=== PATIENT | female | born 1945 | race Caucasian/White ===

== ENCOUNTER 2016-12-08 08:41 | Outpatient (CLI) | payer MEDICARE, OTHER ==
[2016-12-08 09:18] LABS: HGB - HEMOGLOBIN 14.2 g/dL (12.0-16.0); MEAN CORPUSCULAR HEMOGLOBIN 29.3 pg (27.0-31.0); MEAN CORPUSCULAR HGB CONC 33.8 g/dL (32.0-36.0); MEAN CORPUSCULAR VOLUME 86.6 fL (81.0-99.0); MEAN PLATELET VOLUME 7.8 fL (7.9-10.8); RED BLOOD COUNT 4.84 10^6/uL (4.20-5.40); RED CELL DISTRIBUTION WIDTH 14.1 % (12.0-15.0); WHITE BLOOD COUNT 5.3 x10^3/uL (4.8-10.8)
[2016-12-08 09:25] LABS: BILIRUBIN,URINE NEGATIVE (NEGATIVE)
[2016-12-08 09:57] LABS: ALBUMIN/GLOBULIN RATIO 1.2 (1.0-2.2); BILIRUBIN,TOTAL 1.1 mg/dL (0.2-1.0); BUN - BLOOD UREA NITROGEN 11 mg/dL (6-20); CARBON DIOXIDE - CO2 25 mmol/L (21-32); CHLORIDE 106 mmol/L (101-111); CHOL/HDL RATIO 3.9 (<4.4); CHOLESTEROL 192 mg/dL; CREATININE 0.9 mg/dL (0.4-1.0); GFR - MDRD 62 (>89); GLUCOSE 103 mg/dL (70-100); HDL CHOLESTEROL 49 mg/dL; LDL/HDL RATIO 2.4 (<4.4); POTASSIUM 3.9 mmol/L (3.5-5.0); SODIUM 137 mmol/L (135-145); TOTAL PROTEIN 7.2 g/dL (6.7-8.2); TRIGLYCERIDES 133 mg/dL; VLDL CHOLESTEROL 27 mg/dL
== END 2016-12-08 08:42 | disposition home or self-care (01) ==
LOC: LAB 08:41
PROVIDERS: ATTEND Internal Medicine
DX: R53.83 Other fatigue (principal); Z79.899 Other long term (current) drug therapy
CPT/HCPCS: 36415; 80053; 80061; 81003; 84443; 86803

== ENCOUNTER 2016-12-08 09:44 | Outpatient (CLI) | payer MEDICARE, OTHER ==
--- NOTE | 2016-12-09 18:17 | Mammography Report ---
DIGITAL SCREENING MAMMOGRAM: 12/08/2016 CLINICAL INDICATION: A 71-year-old for screening, history of benign biopsy. COMPARISON: 10/2015, 07/2014, 12/2013, 05/2013, 10/2012, 09/2010, 12/2008, 06/2008, 09/2006. TECHNIQUE: Routine CC and MLO projections were obtained of the breasts. FINDINGS: Scattered fibroglandular tissue is present within the breasts. There are no dominant mass es, suspicious microcalcifications, or secondary signs of malignancy. In comparison to the previous studies, there are no significant changes. ASSESSMENT: NO MAMMOGRAPHIC EVIDENCE OF MALIGNANCY. NO SIGNIFICANT INTERVAL CHANGES. RECOMMENDATION: Screening mammography is recommended annually. BIRADS category 1 - negative. STANDARD QUALIFYING STATEMENTS 1. This examination was reviewed with the aid of Computed-Aided Detection (CAD). 2. A negative or benign imaging report should not delay biopsy if clinically suspicious findings are present. Consider surgical consultation if warranted. More than 5% of cancers are not identified b y imaging. 3. Dense breasts may obscure an underlying neoplasm. JOB #: [id number] EXT JOB #:[id number]
== END 2016-12-08 09:45 | disposition home or self-care (01) ==
LOC: DI 09:44
PROVIDERS: ATTEND Internal Medicine
DX: Z12.31 Encounter for screening mammogram for malignant neoplasm of breast (principal)
CPT/HCPCS: 77067

== ENCOUNTER 2017-12-20 07:35 | Outpatient (CLI) | payer MEDICARE, OTHER ==
[2017-12-20 08:07] LABS: BASOPHILS % (AUTO) 0.6 %; EOSINOPHILS # (AUTO) 0.2 10^3/uL (0.0-0.7); EOSINOPHILS % (AUTO) 3.6 %; HGB - HEMOGLOBIN 13.9 g/dL (12.0-16.0); LYMPHOCYTES # (AUTO) 2.3 10^3/uL (1.5-3.5); LYMPHOCYTES % (AUTO) 35.9 %; MEAN CORPUSCULAR HEMOGLOBIN 29.7 pg (27.0-31.0); MEAN CORPUSCULAR VOLUME 87.5 fL (81.0-99.0); MEAN PLATELET VOLUME 8.2 fL (7.9-10.8); MONOCYTES # (AUTO) 0.8 10^3/uL (0.0-1.0); MONOCYTES % (AUTO) 12.6 %; NEUTROPHILS % (AUTO) 47.3 %; PLT - PLATELET COUNT 214 10^3/uL (130-450); RED BLOOD COUNT 4.67 10^6/uL (4.20-5.40); RED CELL DISTRIBUTION WIDTH 13.8 % (12.0-15.0); WHITE BLOOD COUNT 6.3 x10^3/uL (4.8-10.8)
[2017-12-20 08:20] LABS: CHOL/HDL RATIO 4.3 (<4.4); CHOLESTEROL 196 mg/dL; HDL CHOLESTEROL 46 mg/dL; LDL CHOLESTEROL,CALCULATED 124 mg/dL; LDL/HDL RATIO 2.7 (<4.4); VLDL CHOLESTEROL 26 mg/dL
== END 2017-12-20 07:36 | disposition home or self-care (01) ==
LOC: LAB 07:35
PROVIDERS: ATTEND Internal Medicine
DX: Z79.899 Other long term (current) drug therapy (principal); E74.9 Disorder of carbohydrate metabolism, unspecified; M12.9 Arthropathy, unspecified; R53.83 Other fatigue
CPT/HCPCS: 36415; 80061; 83721; 84443; 85025

== ENCOUNTER 2017-12-29 12:52 | Outpatient (CLI) | payer MEDICARE, OTHER ==
--- NOTE | 2017-12-29 15:51 | XRAY Report ---
Reason: UNSPECIFIED INJURY OF NOSE Procedure Date: 12/29/2017 Accession Number: [id number] / [id number] Procedure: XR - Nasal Bones CPT Code: FULL RESULT: EXAM: NASAL BONES RADIOGRAPHY EXAM DATE: 12/29/2017 02:21 PM. CLINICAL HISTORY: Trauma, pain. COMPARISONS: None. TECHNIQUE: 3 views. FINDINGS: Bones: Normal. No fractures or bone lesions. Sinuses: Normal. No opacities or fluid levels. Other: Unremarkable. IMPRESSION: Normal nasal bone radiography. RADIA
== END 2017-12-29 12:53 | disposition home or self-care (01) ==
LOC: DI 12:52
PROVIDERS: ATTEND Internal Medicine
DX: S09.92XS Unspecified injury of nose, sequela (principal)
CPT/HCPCS: 70160

== ENCOUNTER 2018-01-15 07:32 | Outpatient (CLI) | payer MEDICARE, OTHER ==
--- NOTE | 2018-01-15 14:52 | Ultrasound Report ---
Reason: ABDOMINAL PAIN Procedure Date: 01/15/2018 Accession Number: [id number] / [id number] Procedure: US - Abdomen Complete CPT Code: FULL RESULT: EXAM: ABDOMEN ULTRASOUND EXAM DATE: 01/15/2018 09:00 AM. CLINICAL HISTORY: Abdominal pain. COMPARISON: ABDOMEN 10/18/2012 9:39 AM. TECHNIQUE: Real-time scanning was performed with static images obtained. FINDINGS: Liver: Normal in size and echotexture. There is a simple appearing left lobe liver cyst which measures 1.7 x 1.6 x 2.1 cm and the liver overall measures at least 15.8 cm. Main portal vein flow: Hepatopetal. Gallbladder: Surgically absent. Biliary System: Common bile duct measures 6 mm. No intrahepatic or extrahepatic ductal dilatation. Pancreas: Visualized portion is unremarkable. Kidneys: Right: 10.8 cm longitudinally. Normal. No contour-deforming mass, stones, or hydronephrosis. Left: 10.7 cm longitudinally. Normal. No contour-deforming mass, stones, or hydronephrosis. Spleen: 8.8 cm. Normal in size and echotexture, note is made of splenule. Aorta and Inferior Vena Cava: Unremarkable. Other: None. IMPRESSION: Redemonstration of a simple hepatic cyst with no other abnormalities detected. RADIA
== END 2018-01-15 07:33 | disposition home or self-care (01) ==
LOC: DI 07:32
PROVIDERS: ATTEND Internal Medicine
DX: K76.89 Other specified diseases of liver (principal); R10.9 Unspecified abdominal pain
CPT/HCPCS: 76700

== ENCOUNTER 2018-01-15 07:33 | Outpatient (CLI) | payer MEDICARE, OTHER ==
--- NOTE | 2018-01-18 11:57 | Mammography Report ---
Reason: ABDOMINAL PAIN Procedure Date: 01/15/2018 Accession Number: [id number] / [id number] Procedure: MORRO - Screening Mammo Dig Bilat CPT Code: FULL RESULT: EXAM: Screening Mammo Dig Bilat DATE: 01/15/2018 9:55 AM CLINICAL HISTORY: 72-year-old female with right breast biopsy with benign pathology results in 2009 and personal history of early menses. TECHNIQUE: Bilateral CC and MLO views were obtained. COMPARISON: 12/08/2016, 10/30/2015, 08/09/2014, 01/02/2014. FINDINGS: The breasts demonstrate scattered fibroglandular densities bilaterally. No suspicious masses, clustered microcalcifications, or regions of architectural distortion are identified. IMPRESSION: Negative examination RECOMMENDATION: Routine annual screening unless otherwise clinically indicated. BIRADS CATEGORY 1: Negative STANDARD QUALIFYING STATEMENTS: 1. This examination was not reviewed with the aid of Computer-Aided Detection (CAD). 2. A negative or benign imaging report should not delay biopsy if clinically suspicious findings are present. Consider surgical consultation if warrented. More than 5% of cancers are not identified by imaging. 3. Dense breasts may obscure an underlying neoplasm. 4. This examination was reviewed without the aid of 3D breast imaging (tomosynthesis).
== END 2018-01-15 07:34 | disposition home or self-care (01) ==
LOC: DI 07:33
DX: Z12.31 Encounter for screening mammogram for malignant neoplasm of breast (principal)
CPT/HCPCS: 77067

== ENCOUNTER 2018-09-16 10:56 | Outpatient (CLI) | payer MEDICARE, OTHER ==
--- NOTE | 2018-09-16 13:12 | Mammography Report ---
Reason: LT BREAST LUMP Procedure Date: 09/16/2018 Accession Number: [id number] / [id number] Procedure: MORRO - Diagnostic Dig Bilat CPT Code: FULL RESULT: EXAM: Diagnostic Dig Bilat, Breast Unilateral Limited DATE: 09/16/2018 11:55 AM CLINICAL HISTORY: Pain and tenderness left breast 12:00 position BILATERAL MAMMOGRAPHY: TECHNIQUE: (B) - Bilateral CC and MLO views were obtained. COMPARISON: 01/15/2018, 12/08/2016, 10/30/2015, 08/09/2014 PARENCHYMAL PATTERN: (A) - The breasts demonstrate scattered fibroglandular densities bilaterally. FINDINGS: No significant interval change. There are no suspicious masses, calcifications, or areas of distortion. No mammographic abnormality in the area of pain 12:00 position left breast. LEFT BREAST ULTRASOUND TECHNIQUE: Targeted ultrasound was performed of the left breast in the area of clinical concern at 12:00 o'clock and 6 cm distance from the nipple. Color Doppler was employed as appropriate. FINDINGS: No cystic or solid mass, abnormal fluid collection, or lymph node is identified. IMPRESSION: Negative examination. BI-RADS category 1. RECOMMENDATION: (ANNUAL) - Recommend routine annual screening mammography. Clinical follow-up of the painful area left breast. BI-RADS CATEGORY: (1) - Negative. STANDARD QUALIFYING STATEMENTS: 1. This examination was not reviewed with the aid of Computer-Aided Detection (CAD). 2. A negative or benign imaging report should not preclude biopsy if clinically suspicious findings are present. 3. Dense breasts may obscure an underlying neoplasm. 4. This examination was reviewed with the aid of 3D breast imaging (tomosynthesis).
== END 2018-09-16 10:57 | disposition home or self-care (01) ==
LOC: DI 10:56
PROVIDERS: ATTEND Internal Medicine
DX: N63.21 Unspecified lump in the left breast, upper outer quadrant (principal); N64.4 Mastodynia
CPT/HCPCS: 76642; 77066; G0279; 77062

== ENCOUNTER 2019-10-18 15:47 | Emergency (ER) | payer MEDICARE, OTHER ==
[2019-10-18 16:09] LABS: BILIRUBIN,URINE NEGATIVE (NEGATIVE); CLARITY,URINE CLOUDY (CLEAR); GLUCOSE, URINE (UA) NEGATIVE (NEGATIVE); KETONES,URINE (UA) 15 mg/dL (NEGATIVE); LEUKOCYTE ESTERASE, URINE LARGE (NEGATIVE); NITRITE,URINE NEGATIVE (NEGATIVE); OCCULT BLOOD,URINE LARGE (NEGATIVE); PH,URINE 7.5 PH (5.0-7.5); PROTEIN,URINE 100 mg/dL (NEGATIVE); UROBILINOGEN,URINE 0.2 (NORMAL) E.U./dL (NORMAL)
--- NOTE | 2019-10-18 16:14 | ED Physician Documentation ---
PD HPI ABD PAIN - Stated complaint Stated Complaint: RLQ PX/FEVER - Chief complaint Chief Complaint: Abd Pain - History of Present Illness Timing - details: Abrupt onset Pain level max: 8 Quality: Sharp Associated symptoms: No: Fever, Nausea, Vomiting - Additional information Additional information: 74-year-old female presents to the emergency department with chief complaint of right lower quadrant abdominal pain and dysuria. Patient reports that yesterday evening she felt a fuzzy feeling in her stomach but then developed acute pain in the right part of her abdomen. This morning she notes that she is having pain when she pees. Denies dysuria. Past surgical history most significant for laparoscopic cholecystectomy. She does have a history of bladder prolapse. Patient denies fevers or vomiting. Review of Systems Constitutional: denies: Fever, Chills Cardiac: denies: Chest pain / pressure, Palpitations Respiratory: denies: Dyspnea GI: reports: Abdominal Pain. denies: Nausea, Vomiting : reports: Dysuria. denies: Frequency, Hesitancy, Hematuria, Discharge Skin: denies: Rash, Lesions Musculoskeletal: denies: Neck pain Neurologic: denies: Generalized weakness, Syncope, Headache PD PAST MEDICAL HISTORY - Present Medications Home Medications: Ambulatory Orders Medication Instructions Recorded Confirmed Cephalexin [Keflex] 500 mg PO BID #28 capsule 10/18/19 - Allergies Allergies/Adverse Reactions: Allergies Allergy/AdvReac Type Severity Reaction Status Date / Time ciprofloxacin [From Cipro] Allergy Cramps Verified 10/18/19 15:52 metronidazole [From Flagyl] Allergy Emesis Verified 10/18/19 15:52 Penicillins Allergy Emesis Verified 10/18/19 15:52 PD ED PE NORMAL - General General: Alert and oriented X 3, No acute distress, Well developed/nourished - HEENT HEENT: EOMI - Cardiac Cardiac: RRR, No murmur - Respiratory Respiratory: No respiratory distress - Abdomen Abdomen: Normal bowel sounds, Soft, Other (+ mcburney's; + rebound tenderness) - Back Back: No: No CVA TTP, No spinal TTP - Derm Derm: No: Normal color - Extremities Extremities: No: No deformity, No tenderness to palpate - Neuro Neuro: 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 No: Alert and oriented X 3 Eye Opening: Spontaneous Motor: Obeys Commands Verbal: Oriented GCS Score: 15 Results - Vitals Vitals: Vital Signs - 24 hr 10/18/19 15:52 Temperature 37.0 C Heart Rate 88 Respiratory 16 Rate Blood Pressure 125/68 O2 Saturation 94 Oxygen O2 Source Room air - Labs Labs: Laboratory Tests 10/18/19 10/18/19 10/18/19 15:57 16:11 16:11 WBC 14.4 H RBC 4.84 Hgb 14.7 Hct 42.5 MCV 87.8 MCH 30.4 MCHC 34.6 RDW 13.6 Plt Count 229 MPV 9.7 Neut # (Auto) 10.1 H Lymph # (Auto) 2.7 [place] # (Auto) 1.3 H Eos # (Auto) 0.1 Baso # (Auto) 0.1 Absolute Nucleated RBC 0.00 Nucleated RBC % 0.0 Sodium 134 L Potassium 3.6 Chloride 100 L Carbon Dioxide 23 Anion Gap 11.0 BUN 12 Creatinine 0.9 Estimated GFR (MDRD) 61 L Glucose 119 H Lactic Acid Calcium 9.0 Total Bilirubin 1.9 H AST 16 ALT 13 Alkaline Phosphatase 65 Total Protein 7.4 Albumin 4.4 Globulin 3.0 Albumin/Globulin Ratio 1.5 Lipase 43 Urine Color YELLOW Urine Clarity CLOUDY Urine pH 7.5 Ur Specific [place] 1.020 Urine Protein 100 H Urine Glucose (UA) NEGATIVE Urine Ketones 15 H Urine Occult Blood LARGE H Urine Nitrite NEGATIVE Urine Bilirubin NEGATIVE Urine Urobilinogen 0.2 (NORMAL) Ur Leukocyte Esterase LARGE H Urine RBC 6-10 H Urine WBC >25 H Urine WBC Clumps PRESENT Ur Squamous Epith Cells NONE SEEN Urine Bacteria None Seen Ur Microscopic Review INDICATED Urine Culture Comments INDICATED 10/18/19 16:11 WBC RBC Hgb Hct MCV MCH MCHC RDW Plt Count MPV Neut # (Auto) Lymph # (Auto) [place] # (Auto) Eos # (Auto) Baso # (Auto) Absolute Nucleated RBC Nucleated RBC % Sodium Potassium Chloride Carbon Dioxide Anion Gap BUN Creatinine Estimated GFR (MDRD) Glucose Lactic Acid 1.1 Calcium Total Bilirubin AST ALT Alkaline Phosphatase Total Protein Albumin Globulin Albumin/Globulin Ratio Lipase Urine Color Urine Clarity Urine pH Ur Specific [place] Urine Protein Urine Glucose (UA) Urine Ketones Urine Occult Blood Urine Nitrite Urine Bilirubin Urine Urobilinogen Ur Leukocyte Esterase Urine RBC Urine WBC Urine WBC Clumps Ur Squamous Epith Cells Urine Bacteria Ur Microscopic Review Urine Culture Comments - Rads (name of study) CT abd/pelvis Radiology: Final report received (Increase conspicuity of the urinary bladder wall this raises the possibility of cystitis. Nonspecific mildly prominent fluid-filled loops loops of the small bowel in the right lower quadrant. ) PD MEDICAL DECISION MAKING - ED course Complexity details: reviewed results, re-evaluated patient, d/w patient, d/w family ED course: 74-year-old female presented to the emergency department with acute onset right lower quadrant abdominal pain as well as dysuria. She has a mild leukocytosis on her blood count at 14K. Her urine is consistent with infection with many clumps as well as bacteria. However she was focally tender in the right lower quadrant. A CT scan was obtained to rule out the possibility of appendicitis. Mild enteritis is seen in the right lower quadrant. There are also findings consistent with acute cystitis. She does not have fever, CVA tenderness or vomiting and my suspicion is lower at this point for a sending urinary tract infection. However given the late hour the day I have given her 1 g of ceftriaxone. I will discharge her with a prescription of Keflex to be taken twice a day for the next 7 days.Emergent ED return precautions discussed for fevers worsening pain or failure symptoms to resolve. Departure - Departure Disposition: 01 Home, Self Care Clinical Impression: Cystitis, RLQ abdominal pain Condition: Stable Instructions: Abdominal Pain, ED UTI Cystitis Female Follow-Up: Elie Burrows MD [Primary Care Provider] - Prescriptions: Cephalexin [Keflex] 500 mg PO BID #28 capsule Comments: Majo it looks like there is an infection in your urine. We have given you first dose of antibiotic here in the emergency department. Please fill the prescription for the oral antibiotics tomorrow and begin taking as prescribed. CT scan did not show any findings consistent with acute appendicitis. You do have some findings in the lower small intestine that are consistent with ente ritis or simply inflammation.Please return to the emergency department if you are having worsening pain, any fevers, or your symptoms fail to improve please schedule follow-up appointment of this ED visit with your primary care doctor within the next week.
[2019-10-18] MEDS ORDERED: MORPHINE 2 MG/ML CARPUJECT IVP STA (16:16)
[2019-10-18 16:17] LABS: WBC CLUMPS,URINE PRESENT
[2019-10-18 16:18] LABS: BACTERIA,URINE None Seen /HPF (None Seen); SQUAMOUS EPITHELIAL CELL,UR NONE SEEN (<= Few)
[2019-10-18 16:21] LABS: BASOPHILS # (AUTO) 0.1 10^3/uL (0.0-0.1); BASOPHILS % (AUTO) 0.5 %; EOSINOPHILS # (AUTO) 0.1 10^3/uL (0.0-0.7); EOSINOPHILS % (AUTO) 0.9 %; HGB - HEMOGLOBIN 14.7 g/dL (12.0-16.0); LYMPHOCYTES # (AUTO) 2.7 10^3/uL (1.5-3.5); LYMPHOCYTES % (AUTO) 18.8 %; MEAN CORPUSCULAR HEMOGLOBIN 30.4 pg (27.0-31.0); MEAN CORPUSCULAR HGB CONC 34.6 g/dL (32.0-36.0); MEAN CORPUSCULAR VOLUME 87.8 fL (81.0-99.0); MEAN PLATELET VOLUME 9.7 fL (7.9-10.8); MONOCYTES # (AUTO) 1.3 10^3/uL (0.0-1.0); NEUTROPHILS # (AUTO) 10.1 10^3/uL (1.5-6.6); NEUTROPHILS % (AUTO) 70.2 %; PLT - PLATELET COUNT 229 10^3/uL (130-450); RED BLOOD COUNT 4.84 10^6/uL (4.20-5.40); RED CELL DISTRIBUTION WIDTH 13.6 % (12.0-15.0); WHITE BLOOD COUNT 14.4 x10^3/uL (4.8-10.8)
[2019-10-18] MEDS ORDERED: IOVERSOL 320 100 ML VIAL IVP ONE ×2 (16:26→17:01)
[2019-10-18 16:33] LABS: ALBUMIN 4.4 g/dL (3.2-5.5); ALBUMIN/GLOBULIN RATIO 1.5 (1.0-2.2); BILIRUBIN,TOTAL 1.9 mg/dL (0.2-1.0); CREATININE 0.9 mg/dL (0.4-1.0); TOTAL PROTEIN 7.4 g/dL (6.7-8.2)
--- NOTE | 2019-10-18 17:19 | CT Report ---
PROCEDURE: Abdomen/Pelvis W INDICATIONS: RLQ abdominal pain CONTRAST: IV CONTRAST: Optiray 320 ml: 100 PO CONTRAST: *NO PO CONTRAST TECHNIQUE: After the administration of oral and intravenous contrast, 5 mm thick sections acquired from the diap hragms to the symphysis. 5 mm thick coronal and sagittal reformats were acquired. For radiation dos e reduction, the following was used: automated exposure control, adjustment of mA and/or kV accordin g to patient size. COMPARISON: None. FINDINGS: Image quality: Excellent. ABDOMEN: Lung bases: Bibasilar atelectasis. No pleural effusion. Heart size is normal. Probable small hiatal h ernia. Solid organs: Liver and spleen are normal in size and enhancement. Well-circumscribed hepatic hypode nsities which have the appearance of benign cysts. Small splenule. Gallbladder is surgically absent. Left intrahepatic bile duct is mildly prominent measuring up to 8 mm, (3/19). Right intrahepatic angus e ducts appear normal. The CBD measures 1.1 cm and tapers distally.. Pancreas enhances normally. No adrenal nodules. Kidneys demonstrate normal size and enhancement, without hydronephrosis. At least t he proximal aspect of the right ureter is duplicated. More distal ureter is not well seen. Small kristopher ical hypodensities bilaterally which are too small to further characterize. Peritoneum and bowel: Bowel loops demonstrate normal wall thickness and caliber. No bowel obstructio n. Fluid-filled loops of distal ileum in the right lower quadrant and pelvis. Diverticulosis without diverticulitis. No free fluid or air. Nodes and vessels: No retroperitoneal or mesenteric adenopathy by size criteria. Aorta and inferior vena cava are normal in size. Miscellaneous: No ventral hernias. PELVIS: Genitourinary: Bladder is not significantly distended. There is increased conspicuity of the urinary bladder wall. Uterus is within normal limits. Miscellaneous: No inguinal hernias or adenopathy. Bones: No suspicious bony lesions. No vertebral body compression fractures. IMPRESSION: 1. Nonspecific mildly prominent fluid-filled loops of small bowel in the right lower quadrant and pel vis. This could be seen in enteritis. No bowel obstruction. No fluid collection. 2. Increased conspicuity of the urinary bladder wall. This raises the possibility of cystitis. Recomm end correlation with urinalysis. 3. Mildly prominent left intrahepatic bile ducts of undetermined chronicity and clinical significance . Consider correlation with liver function enzymes. 4. Post cholecystectomy. Reviewed by: Kevin Wayne MD on 10/18/2019 5:18 PM PDT Approved by: Kevin Wayne MD on 10/18/2019 5:18 PM PDT Station ID: [id number]
[2019-10-18] MEDS ORDERED: cefTRIAXone 1 GM in SODIUM CHLORIDE 0.9% MINIBAG 100 ML IV STA (17:26)
[2019-10-18 18:44] VITALS: BP 125/80
== END 2019-10-18 18:43 | disposition home or self-care (01) ==
LOC: ED 15:47
DX: N30.90 Cystitis, unspecified without hematuria (principal); K52.9 Noninfective gastroenteritis and colitis, unspecified
CPT/HCPCS: 36415; 74177; 80053; 81001; 83605; 83690; 85025; 87086; 87181; 96365; 96375; 99284; Q9967; 81003

== ENCOUNTER 2019-11-09 08:05 | Outpatient (CLI) | payer MEDICARE, OTHER ==
[2019-11-09 08:37] LABS: CHOL/HDL RATIO 3.5 (<4.4); CHOLESTEROL 209 mg/dL; HDL CHOLESTEROL 60 mg/dL; LDL CHOLESTEROL,CALCULATED 129 mg/dL; LDL/HDL RATIO 2.2 (<4.4); VLDL CHOLESTEROL 20 mg/dL
== END 2019-11-09 08:06 | disposition home or self-care (01) ==
LOC: LAB 08:05
PROVIDERS: ATTEND Internal Medicine
DX: R53.83 Other fatigue (principal); Z79.899 Other long term (current) drug therapy; E78.9 Disorder of lipoprotein metabolism, unspecified
CPT/HCPCS: 36415; 80061; 83721; 84443

== ENCOUNTER 2020-02-20 12:59 | Outpatient (CLI) | payer MEDICARE, OTHER ==
--- NOTE | 2020-02-22 16:32 | Mammography Report ---
BILATERAL DIGITAL SCREENING MAMMOGRAM 3D/2D: 02/20/2020 CLINICAL: Routine screening. Comparison is made to exams dated: 01/15/2018 mammogram, 12/08/2016 mammogram, 10/30/2015 mammogram, mammogram, and 09/16/2018 mammogram - [facility]. There are scattered fibro glandular elements in both breasts. No significant masses, calcifications, or other findings are seen in either breast. There has been no significant interval change. IMPRESSION: NEGATIVE There is no mammographic evidence of malignancy. A 1 year screening mammogram is recommended. This exam was interpreted at Station ID: [id number]. NOTE: For mammograms, a report in lay terms will be sent to the patient. Approximately 15% of breast malignancies will not be visualized mammographically. In the management of a palpable breast mass, a negative mammogram must not discourage biopsy of a clinically suspicious lesion. Electronically Signed By: Rafia mckeon/penrad:02/21/2020 16:28:22 ACR BI-RADS Category 1: Negative 3341F PARENCHYMAL PATTERN: (A) - The breast(s) demonstrate(s) scattered fibroglandular densities. BI-RADS CATEGORY: (1) - 1 RECOMMENDATION: (ANNUAL) - Recommend routine annual screening mammography. [id number] 1 year screening LATERALITY: (B)
== END 2020-02-20 13:00 | disposition home or self-care (01) ==
LOC: DI.N 12:59
DX: Z12.31 Encounter for screening mammogram for malignant neoplasm of breast (principal)
CPT/HCPCS: 77063; 77067

== ENCOUNTER 2020-02-23 07:53 | Outpatient (CLI) | payer MEDICARE, OTHER ==
[2020-02-23 11:05] LABS: BILIRUBIN,URINE NEGATIVE (NEGATIVE); CLARITY,URINE CLEAR (CLEAR); GLUCOSE, URINE (UA) NEGATIVE (NEGATIVE); KETONES,URINE (UA) NEGATIVE (NEGATIVE); LEUKOCYTE ESTERASE, URINE SMALL (NEGATIVE); NITRITE,URINE NEGATIVE (NEGATIVE); OCCULT BLOOD,URINE TRACE-INTA (NEGATIVE); PROTEIN,URINE NEGATIVE (NEGATIVE); UROBILINOGEN,URINE 0.2 (NORMAL) E.U./dL (NORMAL)
[2020-02-23 11:13] LABS: BACTERIA,URINE Few /HPF (None Seen); RBC,URINE 0-5 /HPF (0-5); SQUAMOUS EPITHELIAL CELL,UR FEW Squamous (<= Few)
== END 2020-02-23 07:54 | disposition home or self-care (01) ==
LOC: LAB 07:53
PROVIDERS: ATTEND Urology
DX: Z76.89 Persons encountering health services in other specified circumstances (principal)
CPT/HCPCS: 81001; 87086

== ENCOUNTER 2020-07-12 14:34 | Outpatient (CLI) | payer MEDICARE, OTHER ==
--- NOTE | 2020-07-12 15:54 | Ultrasound Report ---
PROCEDURE: Duplex Ext Veins Right INDICATIONS: RT CALF PAIN, R/O DVT TECHNIQUE: Real-time imaging, as well as color and pulse Doppler interrogation, were performed of the lower extr emity deep veins from the inguinal ligament to the popliteal fossa. COMPARISON: None. FINDINGS: The deep veins are normally compressible, and free of intraluminal thrombus. Color and pu lse Doppler demonstrate normal phasic intraluminal flow. There is normal augmentation response to di stal compression maneuver. IMPRESSION: No evidence of deep vein thrombosis involving the right lower extremity. Reviewed by: Vanessa Yanez MD, PhD on 07/12/2020 3:53 PM PDT Approved by: Vanessa Yanez MD, PhD on 07/12/2020 3:53 PM PDT Station ID: [id number]
== END 2020-07-12 14:35 | disposition home or self-care (01) ==
LOC: DI 14:34
PROVIDERS: ATTEND Family Medicine
DX: M79.661 Pain in right lower leg (principal)

== ENCOUNTER 2020-07-31 08:54 | Outpatient (CLI) | payer MEDICARE, OTHER ==
--- NOTE | 2020-07-31 09:40 | XRAY Report ---
PROCEDURE: Lumbar Spine 2 View INDICATIONS: LOW BACK SPRAIN TECHNIQUE: 3 views of the lumbar spine were acquired. COMPARISON: None. FINDINGS: Bones: 5 [id number]-aol-dhmerpf vertebrae are present. There is minimal retrolisthesis of and T12 on L1 an d grade 1 anterolisthesis of L4 on L5. Degenerative endplate changes are noted throughout visualized lower thoracic spine and lumbar spine. Finding is more prominent at L4-5 and L5-S1 levels. No vertebr al body compression fractures. No suspicious bony lesions. Soft tissues: Overlying bowel gas pattern is normal. No suspicious soft tissue calcifications. IMPRESSION: Likely degenerative spondylolisthesis at T12-L1 and L4-5 levels as above. Degenerative d isc disease throughout lower thoracic and lumbar spine more prominent at L4-5 and L5-S1 levels. No ac mary anne compression fracture. Reviewed by: Cordell Hoff MD on 07/31/2020 8:38 AM RHONA Approved by: Cordell Hoff MD on 07/31/2020 8:38 AM RHONA Station ID: [id number]
== END 2020-07-31 08:55 | disposition home or self-care (01) ==
LOC: DI 08:54
PROVIDERS: ATTEND Internal Medicine
DX: M51.36 Other intervertebral disc degeneration, lumbar region (principal); M51.37 Other intervertebral disc degeneration, lumbosacral region; M43.16 Spondylolisthesis, lumbar region; M43.15 Spondylolisthesis, thoracolumbar region

== ENCOUNTER 2020-08-05 08:01 | Outpatient (CLI) | payer MEDICARE, OTHER ==
[2020-08-05 08:22] LABS: BASOPHILS # (AUTO) 0.1 10^3/uL (0.0-0.1); BASOPHILS % (AUTO) 0.8 %; EOSINOPHILS # (AUTO) 0.4 10^3/uL (0.0-0.7); EOSINOPHILS % (AUTO) 5.8 %; HCT - HEMATOCRIT 43.3 % (37.0-47.0); HGB - HEMOGLOBIN 14.5 g/dL (12.0-16.0); LYMPHOCYTES # (AUTO) 2.6 10^3/uL (1.5-3.5); LYMPHOCYTES % (AUTO) 41.5 %; MEAN CORPUSCULAR HEMOGLOBIN 29.5 pg (27.0-31.0); MEAN CORPUSCULAR HGB CONC 33.5 g/dL (32.0-36.0); MEAN PLATELET VOLUME 9.4 fL (7.9-10.8); MONOCYTES # (AUTO) 0.7 10^3/uL (0.0-1.0); MONOCYTES % (AUTO) 11.8 %; NEUTROPHILS # (AUTO) 2.5 10^3/uL (1.5-6.6); NEUTROPHILS % (AUTO) 39.9 %; PLT - PLATELET COUNT 221 10^3/uL (130-450); RED BLOOD COUNT 4.92 10^6/uL (4.20-5.40); RED CELL DISTRIBUTION WIDTH 13.5 % (12.0-15.0); WHITE BLOOD COUNT 6.2 x10^3/uL (4.8-10.8)
[2020-08-05 08:36] LABS: ALBUMIN 4.2 g/dL (3.2-5.5); ALBUMIN/GLOBULIN RATIO 1.4 (1.0-2.2); ALKALINE PHOSPHATASE 63 IU/L (42-121); ALT ALANINE AMINOTRANSFERASE 13 IU/L (10-60); AST ASPARTATE AMINOTRANSFERASE 15 IU/L (10-42); BILIRUBIN,TOTAL 1.4 mg/dL (0.2-1.0); BUN - BLOOD UREA NITROGEN 13 mg/dL (6-20); CALCIUM 9.1 mg/dL (8.5-10.3); CARBON DIOXIDE - CO2 25 mmol/L (21-32); CHLORIDE 100 mmol/L (101-111); CHOL/HDL RATIO 3.6 (<4.4); CHOLESTEROL 218 mg/dL; CREATININE 0.8 mg/dL (0.4-1.0); GFR - MDRD 70 (>89); GLUCOSE 102 mg/dL (70-100); HDL CHOLESTEROL 61 mg/dL; LDL CHOLESTEROL,CALCULATED 127 mg/dL; LDL/HDL RATIO 2.1 (<4.4); POTASSIUM 3.7 mmol/L (3.5-5.0); SODIUM 134 mmol/L (135-145); TOTAL PROTEIN 7.1 g/dL (6.7-8.2); TRIGLYCERIDES 150 mg/dL; VLDL CHOLESTEROL 30 mg/dL
== END 2020-08-05 08:02 | disposition home or self-care (01) ==
LOC: LAB 08:01
PROVIDERS: ATTEND Internal Medicine
DX: S33.9XXA Sprain of unspecified parts of lumbar spine and pelvis, initial encounter (principal); E74.9 Disorder of carbohydrate metabolism, unspecified; E78.49 Other hyperlipidemia; R53.83 Other fatigue; Z79.899 Other long term (current) drug therapy; E78.79 Other disorders of bile acid and cholesterol metabolism
CPT/HCPCS: 36415; 80053; 80061; 83721; 84443; 85025; 85651

== ENCOUNTER 2020-08-16 08:53 | Outpatient (CLI) | payer MEDICARE, OTHER ==
--- NOTE | 2020-08-16 10:39 | XRAY Report ---
PROCEDURE: Shoulder 3 View LT INDICATIONS: ARTHRALGIA LEFT SHOULDER TECHNIQUE: 3 views of the shoulder were acquired. COMPARISON: None. FINDINGS: Bones: No fractures or dislocations. No suspicious bony lesions. Visualized ribs appear intact. M oderate to severe acromioclavicular joint space narrowing. Mild high riding appearance of the yadira l head. Soft tissues: No suspicious soft tissue calcifications. IMPRESSION: 1. Moderate to severe acromioclavicular joint space narrowing. 2. High riding humeral head which can be seen with rotator cuff pathology. Reviewed by: Ariana Bautista MD on 08/16/2020 9:37 AM RHONA Approved by: Ariana Bautista MD on 08/16/2020 9:37 AM RHONA Station ID: [id number]
== END 2020-08-16 08:54 | disposition home or self-care (01) ==
LOC: DI 08:53
PROVIDERS: ATTEND Family Medicine
DX: M25.512 Pain in left shoulder (principal)

== ENCOUNTER 2020-10-16 10:49 | Outpatient (CLI) | payer MEDICARE, OTHER ==
[2020-10-16 12:10] LABS: BILIRUBIN,URINE NEGATIVE (NEGATIVE); GLUCOSE, URINE (UA) NEGATIVE (NEGATIVE); KETONES,URINE (UA) NEGATIVE (NEGATIVE); LEUKOCYTE ESTERASE, URINE SMALL (NEGATIVE); NITRITE,URINE NEGATIVE (NEGATIVE); OCCULT BLOOD,URINE TRACE-LYSE (NEGATIVE); PROTEIN,URINE NEGATIVE (NEGATIVE); UROBILINOGEN,URINE 0.2 (NORMAL) E.U./dL (NORMAL)
[2020-10-16 12:11] LABS: CLARITY,URINE CLEAR (CLEAR)
[2020-10-16 12:17] LABS: BACTERIA,URINE Rare /HPF (None Seen); RBC,URINE 0-5 /HPF (0-5); SQUAMOUS EPITHELIAL CELL,UR RARE Squamous (<= Few); WBC,URINE 0-3 /HPF (0-5)
== END 2020-10-16 23:59 | disposition home or self-care (01) ==
LOC: LAB.R 10:49
PROVIDERS: ATTEND Urology
DX: Z76.89 Persons encountering health services in other specified circumstances (principal); R31.29 Other microscopic hematuria; R31.9 Hematuria, unspecified
CPT/HCPCS: 81001; 87086

== ENCOUNTER 2020-11-28 07:34 | Outpatient (CLI) | payer MEDICARE, OTHER ==
--- NOTE | 2020-11-28 12:26 | XRAY Report ---
PROCEDURE: Chest 2 View X-Ray INDICATIONS: COUGH TECHNIQUE: 2 view(s) of the chest. COMPARISON: None. FINDINGS: Surgical changes and devices: Cholecystectomy clips. Lungs and pleura: No pleural effusions or pneumothorax. Bibasilar scarring or recurrent atelectasis stable compared to prior CT scan of the abdomen were obtained 10/18/2019. Mediastinum: Mediastinal contours are normal. Heart size is normal. Bones and chest wall: No suspicious bony abnormalities. Soft tissues appear unremarkable. IMPRESSION: No acute cardiopulmonary disease process. Reviewed by: Vanessa Yanez MD, PhD on 11/28/2020 12:25 PM PDT Approved by: Vanessa Yanez MD, PhD on 11/28/2020 12:25 PM PDT Station ID: [id number]
== END 2020-11-28 07:35 | disposition home or self-care (01) ==
LOC: DI 07:34
PROVIDERS: ATTEND Internal Medicine
DX: R05 Cough (principal)

== ENCOUNTER 2021-02-20 08:40 | Outpatient (CLI) | payer MEDICARE, OTHER ==
--- NOTE | 2021-02-26 13:47 | Mammography Report ---
BILATERAL DIGITAL SCREENING MAMMOGRAM 3D/2D: 02/20/2021 CLINICAL: Routine screening. Comparison is made to exams dated: 02/20/2020 mammogram, 09/16/2018 ultrasound, 09/16/2018 mammogram, mammogram, 12/08/2016 mammogram, and 10/30/2015 mammogram - [facility]. The re are scattered fibroglandular elements in both breasts. No significant masses, calcifications, or other findings are seen in either breast. There has been no significant interval change. IMPRESSION: NEGATIVE There is no mammographic evidence of malignancy. A 1 year screening mammogram is recommended. This exam was interpreted at Station ID: [id number]. NOTE: For mammograms, a report in lay terms will be sent to the patient. Approximately 15% of breast malignancies will not be visualized mammographically. In the management of a palpable breast mass, a negative mammogram must not discourage biopsy of a clinically suspicious lesion. Electronically Signed By: Jeremy Velez M.D., jr/donavan:02/25/2021 16:13:53 ACR BI-RADS Category 1: Negative 3341F PARENCHYMAL PATTERN: (A) - The breast(s) demonstrate(s) scattered fibroglandular densities. BI-RADS CATEGORY: (1) - 1 RECOMMENDATION: (ANNUAL) - Recommend routine annual screening mammography. [id number] 1 year screening LATERALITY: (B)
== END 2021-02-20 08:41 | disposition home or self-care (01) ==
LOC: DI.N 08:40
DX: Z12.31 Encounter for screening mammogram for malignant neoplasm of breast (principal)

== ENCOUNTER 2023-03-23 13:57 | Outpatient (CLI) | payer MEDICARE, OTHER ==
--- NOTE | 2023-03-24 13:18 | Mammography Report ---
BILATERAL DIGITAL SCREENING MAMMOGRAM 3D/2D: 03/23/2023 CLINICAL: Routine screening. Comparison is made to exams dated: 03/04/2022 mammogram, 02/20/2021 mammogram, 02/20/2020 mammogram, mammogram, 09/16/2018 mammogram, and 12/08/2016 mammogram - [facility]. There are scattered areas of fibroglandular density in both breasts (category b / 25%-50% glandular t issue). There is a possible developing oval equal density focal asymmetry in the left breast at 9 o'clock ant erior depth. This is more prominent. No other significant masses, calcifications, or other findings are seen in either breast. IMPRESSION: INCOMPLETE: NEEDS ADDITIONAL IMAGING EVALUATION The possible developing oval equal density focal asymmetry in the left breast is indeterminate. Freddy tional views with possible ultrasound are recommended. Based on the Tyrer Cuzick model (a risk assessment model) the patients lifetime risk is 3.1% and her 10 year risk is 0.0%. According to the ACR, ACS, and NCCN guidelines, an annual breast MRI exam ronda g with mammogram is recommended if the patients lifetime risk is 20% or greater. This exam was interpreted at Station ID: [id number]. NOTE: For mammograms, a report in lay terms will be sent to the patient. Approximately 15% of breast malignancies will not be visualized mammographically. In the management of a palpable breast mass, a negative mammogram must not discourage biopsy of a clinically suspicious lesion. Electronically Signed By: Cristobal Huang M.D. aty/:03/23/2023 15:50:50 ACR BI-RADS Category 0: Incomplete 3340F PARENCHYMAL PATTERN: (A) - The breast(s) demonstrate(s) scattered fibroglandular densities. BI-RADS CATEGORY: (0) - 0 Mammo and [place] [id number] Immediate follow-up LATERALITY: (L)
== END 2023-03-23 13:58 | disposition home or self-care (01) ==
LOC: DI 13:57
DX: Z12.31 Encounter for screening mammogram for malignant neoplasm of breast (principal); R92.323 Mammographic fibroglandular density, bilateral breasts; R92.8 Other abnormal and inconclusive findings on diagnostic imaging of breast

== ENCOUNTER 2023-04-15 08:18 | Outpatient (CLI) | payer MEDICARE, OTHER ==
--- NOTE | 2023-04-16 08:27 | Ultrasound Report ---
LIMITED ULTRASOUND OF LEFT BREAST: 04/15/2023 CLINICAL: Patient returns today to evaluate a focal asymmetry in the left breast. Comparison is made to exams dated: 04/15/2023 mammogram, 03/23/2023 mammogram, 03/04/2022 mammogram, 02/20/2021 mammogram, and 02/20/2020 mammogram - [facility]. Real-time ultrasound of the left breast 9-10 o'clock region was performed. Glez scale images of the real-time examination were reviewed. No significant abnormalities were seen sonographically in the left breast. IMPRESSION: NEGATIVE There is no sonographic evidence of malignancy. There is no abnormality seen in the left breast to correspond with the mammography finding which is c onsistent with normal fibroglandular tissue. Return to annual mammogram screening schedule is recommended. This exam was interpreted at Station ID: [id number]. Electronically Signed By: Tristen reed/donavan:04/15/2023 16:45:36 Ultrasound BI-RADS: 1 Negative BI-RADS CATEGORY: (1) - 1 Mammogram [id number] return to screening LATERALITY: (B)
--- NOTE | 2023-04-16 08:27 | Mammography Report ---
UNILATERAL LEFT DIGITAL DIAGNOSTIC MAMMOGRAM 3D/2D WITH SPOT COMPRESSION: 04/15/2023 CLINICAL: Patient returns today to evaluate a focal asymmetry in the left breast. Comparison is made to exams dated: 03/23/2023 mammogram, 03/04/2022 mammogram, 02/20/2021 mammogram, a nd 02/20/2020 mammogram - [facility]. There are scattered areas of fibroglandular density in the left breast (category b / 25%-50% glandula r tissue). There is a possible developing oval focal asymmetry in the left breast at 9 o'clock anterior depth. This is less prominent. No other significant masses or calcifications are seen in the breast. IMPRESSION: INCOMPLETE: NEEDS ADDITIONAL IMAGING EVALUATION The possible developing oval focal asymmetry in the left breast resembles fibroglandular tissue and i s indeterminate. An ultrasound is recommended. Based on the Tyrer Cuzick model (a risk assessment model) the patients lifetime risk is 3.1% and her 10 year risk is 0.0%. According to the ACR, ACS, and NCCN guidelines, an annual breast MRI exam ronda g with mammogram is recommended if the patients lifetime risk is 20% or greater. This exam was interpreted at Station ID: [id number]. NOTE: For mammograms, a report in lay terms will be sent to the patient. Approximately 15% of breast malignancies will not be visualized mammographically. In the management of a palpable breast mass, a negative mammogram must not discourage biopsy of a clinically suspicious lesion. Electronically Signed By: Tristen reed/penrad:04/15/2023 16:44:53 ACR BI-RADS Category 0: Incomplete 3340F PARENCHYMAL PATTERN: (A) - The breast(s) demonstrate(s) scattered fibroglandular densities. BI-RADS CATEGORY: (0) - 0 Ultrasound [id number] Immediate follow-up LATERALITY: (L)
== END 2023-04-15 08:19 | disposition home or self-care (01) ==
LOC: DI 08:18
PROVIDERS: ATTEND Internal Medicine
DX: R92.8 Other abnormal and inconclusive findings on diagnostic imaging of breast (principal)

== ENCOUNTER 2023-05-29 08:03 | Outpatient (CLI) | payer MEDICARE, OTHER ==
[2023-05-29 08:27] LABS: BASOPHILS # (AUTO) 0.1 10^3/uL (0.0-0.1); EOSINOPHILS # (AUTO) 0.2 10^3/uL (0.0-0.7); EOSINOPHILS % (AUTO) 3.6 %; HCT - HEMATOCRIT 46.2 % (37.0-47.0); HGB - HEMOGLOBIN 14.9 g/dL (12.0-16.0); LYMPHOCYTES # (AUTO) 2.2 10^3/uL (1.5-3.5); LYMPHOCYTES % (AUTO) 36.2 %; MEAN CORPUSCULAR HEMOGLOBIN 28.2 pg (27.0-31.0); MEAN CORPUSCULAR HGB CONC 32.3 g/dL (32.0-36.0); MEAN CORPUSCULAR VOLUME 87.5 fL (81.0-99.0); MEAN PLATELET VOLUME 9.7 fL (7.9-10.8); MONOCYTES # (AUTO) 0.7 10^3/uL (0.0-1.0); MONOCYTES % (AUTO) 11.6 %; NEUTROPHILS # (AUTO) 2.9 10^3/uL (1.5-6.6); NEUTROPHILS % (AUTO) 47.3 %; PLT - PLATELET COUNT 230 10^3/uL (130-450); RED BLOOD COUNT 5.28 10^6/uL (4.20-5.40); RED CELL DISTRIBUTION WIDTH 13.6 % (12.0-15.0); WHITE BLOOD COUNT 6.1 x10^3/uL (4.8-10.8)
[2023-05-29 08:49] LABS: BILIRUBIN,URINE NEGATIVE (NEGATIVE); GLUCOSE, URINE (UA) NEGATIVE (NEGATIVE); KETONES,URINE (UA) NEGATIVE (NEGATIVE); LEUKOCYTE ESTERASE, URINE LARGE (NEGATIVE); NITRITE,URINE NEGATIVE (NEGATIVE); OCCULT BLOOD,URINE SMALL (NEGATIVE); PROTEIN,URINE NEGATIVE (NEGATIVE); UROBILINOGEN,URINE 0.2 (NORMAL) E.U./dL (NORMAL)
[2023-05-29 08:53] LABS: ALBUMIN/GLOBULIN RATIO 1.3 (1.0-2.2); ALKALINE PHOSPHATASE 58 IU/L (42-121); ALT ALANINE AMINOTRANSFERASE 8 IU/L (10-60); AST ASPARTATE AMINOTRANSFERASE 13 IU/L (10-42); BILIRUBIN,TOTAL 0.8 mg/dL (0.2-1.0); BUN - BLOOD UREA NITROGEN 14 mg/dL (6-20); CALCIUM 9.5 mg/dL (8.5-10.3); CARBON DIOXIDE - CO2 27 mmol/L (21-32); CHLORIDE 105 mmol/L (101-111); CHOL/HDL RATIO 3.6 (<4.4); CHOLESTEROL 194 mg/dL; CREATININE 0.9 mg/dL (0.6-1.3); CRP - C-REACTIVE PROTEIN < 0.5 mg/dL (<0.5); GFR - MDRD 61 (>89); GLUCOSE 102 mg/dL (74-104); HDL CHOLESTEROL 54 mg/dL; LDL CHOLESTEROL,CALCULATED 106 mg/dL; MAGNESIUM 1.9 mg/dL (1.7-2.3); POTASSIUM 3.7 mmol/L (3.5-4.5); SODIUM 137 mmol/L (135-145); TRIGLYCERIDES 170 mg/dL (48-352); VLDL CHOLESTEROL 34 mg/dL
[2023-05-29 08:54] LABS: CLARITY,URINE CLEAR (CLEAR)
[2023-05-29 08:55] LABS: BACTERIA,URINE Few /HPF (None Seen); RBC,URINE 0-5 /HPF (0-5); SQUAMOUS EPITHELIAL CELL,UR NONE SEEN (<= Few); WBC,URINE 0-3 /HPF (0-5)
[2023-05-29 08:55] LABS: THYROID STIMULATING HORMONE 3.63 uIU/mL (0.34-5.60)
== END 2023-05-29 08:04 | disposition home or self-care (01) ==
LOC: LAB 08:03
PROVIDERS: ATTEND Internal Medicine
DX: K22.9 Disease of esophagus, unspecified (principal); Z79.899 Other long term (current) drug therapy; E78.5 Hyperlipidemia, unspecified; E74.9 Disorder of carbohydrate metabolism, unspecified; R07.9 Chest pain, unspecified; R53.83 Other fatigue; M12.9 Arthropathy, unspecified; R19.7 Diarrhea, unspecified
CPT/HCPCS: 36415; 80053; 80061; 81001; 81599; 82784; 83721; 83735; 84443; 85025; 85651; 86140; 86231; 86364; 87086

== ENCOUNTER 2023-06-11 13:21 | Emergency (ER) | payer MEDICARE, OTHER ==
--- NOTE | 2023-06-11 15:36 | CT Report ---
PROCEDURE: Head WO INDICATIONS: fall/head inj TECHNIQUE: Noncontrast 4.5 mm thick angled axial sections acquired from the foramen magnum to the vertex. For r adiation dose reduction, the following was used: automated exposure control, adjustment of mA and/or kV according to patient size. COMPARISON: None. FINDINGS: Image quality: Excellent. CSF spaces: Subdural hematoma along the falx, maximum thickness of 5.5 mm (series 2, image 20). Addit ional hyperattenuating collection superior to the left frontal lobe measuring 16 x 5 mm (series 8, im age 20). Brain: No midline shift. No intracranial masses or hemorrhage. Glez-white matter interface is norm al. Skull and face: Calvarium and visualized facial bones are intact, without suspicious lesions. Poste rior scalp hematoma, without underlying fracture. Sinuses: Visualized sinuses and mastoids are clear. IMPRESSION: Subdural hematoma along the falx, maximum thickness of 5.5 mm, without midline shift or herniation. Additional subdural collection, presumably hemorrhage, along the left frontal lobe measuring 16 x 5 m m. Attention on follow-up. Above discussed with Valorie De León at the time of dictation. Reviewed by: Dandre Collins MD on 06/11/2023 3:35 PM PST Approved by: Dandre Collins MD on 06/11/2023 3:35 PM PST Station ID: [id number]
[2023-06-11 15:53] VITALS: O2SAT 94
[2023-06-11 16:45] LABS: BASOPHILS % (AUTO) 0.4 %; EOSINOPHILS # (AUTO) 0.2 10^3/uL (0.0-0.7); EOSINOPHILS % (AUTO) 1.7 %; HCT - HEMATOCRIT 41.5 % (37.0-47.0); HGB - HEMOGLOBIN 13.4 g/dL (12.0-16.0); LYMPHOCYTES # (AUTO) 1.5 10^3/uL (1.5-3.5); LYMPHOCYTES % (AUTO) 14.9 %; MEAN CORPUSCULAR HEMOGLOBIN 28.3 pg (27.0-31.0); MEAN CORPUSCULAR HGB CONC 32.3 g/dL (32.0-36.0); MEAN CORPUSCULAR VOLUME 87.7 fL (81.0-99.0); MEAN PLATELET VOLUME 9.8 fL (7.9-10.8); MONOCYTES # (AUTO) 0.8 10^3/uL (0.0-1.0); MONOCYTES % (AUTO) 8.2 %; NEUTROPHILS # (AUTO) 7.3 10^3/uL (1.5-6.6); NEUTROPHILS % (AUTO) 74.1 %; PLT - PLATELET COUNT 203 10^3/uL (130-450); RED BLOOD COUNT 4.73 10^6/uL (4.20-5.40); RED CELL DISTRIBUTION WIDTH 13.7 % (12.0-15.0); WHITE BLOOD COUNT 9.9 x10^3/uL (4.8-10.8)
[2023-06-11 16:55] LABS: INR 1.1 (0.8-1.2); PT - PROTHROMBIN TIME 11.9 secs (9.9-12.6)
[2023-06-11 16:59] LABS: ALBUMIN 3.9 g/dL (3.2-5.5); ALBUMIN/GLOBULIN RATIO 1.3 (1.0-2.2); BILIRUBIN,TOTAL 0.7 mg/dL (0.2-1.0); CREATININE 0.8 mg/dL (0.6-1.3); POTASSIUM 3.7 mmol/L (3.5-4.5); TOTAL PROTEIN 6.8 g/dL (6.4-8.9)
--- NOTE | 2023-06-11 17:19 | ED Physician Documentation ---
History of Present Illness - Stated complaint Stated Complaint: GLF/HEAD INJ - Chief complaint Chief Complaint: Trauma Hd/Nk - History obtained from History obtained from: Patient, Family - Additonal information Additional information: The patient comes to the emergency department chief complaint of head injury. She states she was out for a walk with her dog when the dog met another dog and began to become morality. She states the leash was jerked a few times and as she was pulling back, she ended up falling backwards onto the pavement. She states she hit the back of her head. She did not lose consciousness and states she does not really feel like she was injured in any other way. She states she feels a little sore in her coccygeal area but not terribly painful, and she was able to ambulate afterward. The patient denies any lightheadedness or dizziness. No focal neurologic deficits. She states the muscles in her neck felt sore but no spinal tenderness. No visual changes. No difficulty speaking. No other complaints at this time. She had some bleeding from her scalp that resolved. PD PAST MEDICAL HISTORY - Past Medical History Cardiovascular: None Respiratory: None Neuro: None Endocrine/Autoimmune: None GI: GERD, C.difficile DOOR CUTTER: None : Other HEENT: Chronic sinusitis Psych: None Musculoskeletal: None Derm: None - Past Surgical History Past Surgical History: Yes General: Cholecystectomy /DOOR CUTTER: Other - Present Medications Home Medications: Ambulatory Orders Medication Instructions Recorded Confirmed Pantoprazole [Protonix] 40 mg PO DAILY 06/11/23 06/11/23 - Allergies Allergies/Adverse Reactions: Allergies Allergy/AdvReac Type Severity Reaction Status Date / Time ciprofloxacin [From Cipro] Allergy Cramps Verified 06/11/23 13:46 metronidazole [From Flagyl] Allergy Emesis Verified 06/11/23 13:46 Penicillins Allergy Emesis Verified 06/11/23 13:46 omeprazole AdvReac Headache Verified 06/11/23 15:42 - Social History Does the pt smoke?: No Smoking Status: Never smoker Does the pt drink ETOH?: Yes Does the pt have substance abuse?: No - Immunizations Immunizations are current?: Yes PD ED PE NORMAL - Vitals Vital signs reviewed: Yes - General General: Alert and oriented X 3, No acute distress, Well developed/nourished - HEENT HEENT: PERRL, EOMI, Moist mucous membranes, Other (Abrasion posterior scalp, just superior to the occiput.) - Neck Neck: Supple, no meningeal sign, No bony TTP - Cardiac Cardiac: RRR, No murmur, Strong equal pulses - Respiratory Respiratory: No respiratory distress, Clear bilaterally - Abdomen Abdomen: Soft, Non tender, Non distended - Back Back: No spinal TTP - Derm Derm: Normal color, Warm and dry, No rash - Extremities Extremities: No deformity, No edema - Neuro Neuro: Alert and oriented X 3, [employer] membership advisors 2-12 intact, No motor deficit, No sensory deficit, Normal speech Eye Opening: Spontaneous Motor: Obeys Commands Verbal: Oriented GCS Score: 15 - Psych Psych: Normal mood, Normal affect Results - Vitals Vitals: Vital Signs - 24 hr 06/11/23 06/11/23 13:36 15:45 Temperature 36.5 C Heart Rate 72 68 Respiratory 16 18 Rate Blood Pressure 161/78 H 153/85 H O2 Saturation 96 94 Oxygen O2 Source Room air - Labs Labs: Laboratory Tests 06/11/23 06/11/23 06/11/23 16:35 16:35 16:35 WBC 9.9 RBC 4.73 Hgb 13.4 Hct 41.5 MCV 87.7 MCH 28.3 MCHC 32.3 RDW 13.7 Plt Count 203 MPV 9.8 Neut # (Auto) 7.3 H Lymph # (Auto) 1.5 [place] # (Auto) 0.8 Eos # (Auto) 0.2 Baso # (Auto) 0.0 Absolute Nucleated RBC 0.00 Nucleated RBC % 0.0 PT 11.9 INR 1.1 Sodium 137 Potassium 3.7 Chloride 105 Carbon Dioxide 25 Anion Gap 7.0 BUN 11 Creatinine 0.8 Estimated GFR (MDRD) 70 L Glucose 99 Calcium 9.0 Total Bilirubin 0.7 AST 14 ALT 11 Alkaline Phosphatase 56 Total Protein 6.8 Albumin 3.9 Globulin 2.9 Albumin/Globulin Ratio 1.3 Lipase 39 - Rads (name of study) CT head Relevant Findings:: Final report received, See rad report (Subdural hematoma along the falx maximum thickness 5.5 mm, without midline shift or herniation; additional subdural collection presumably hemorrhage along the left frontal lobe, 16 x 5 mm.) PD Medical Decision Making - ED course Complexity details: reviewed results, re-evaluated patient, considered differential, d/w patient, d/w family ED course: The patient was worked up with CT scan of the head, which showed intracranial hemorrhage as above. She was completely lucid with a GCS of 15 and no distracting injuries or intoxication. She had no tenderness whatsoever over her spine and was already moving her neck freely upon arrival in the emergency department, and as such, her C-spine was cleared clinically at bedside. I spoke with transfer center and images were sent to [facility]. Ultimately, the patient was accepted for transfer to the emergency department by Dr. Flower and I was informed by transfer center that the neurosurgery team would be notified. I spoke with the patient and let her know the plan and she was agreeable. Departure - Departure Disposition: 02 Transfer Acute Care Hosp Clinical Impression: Subdural hemorrhage Condition: Critical Forms: PCP List
[2023-06-11] MEDS: ACETAMINOPHEN 325 MG TABLET PO STA (17:33)
[2023-06-11 17:56] VITALS: BP 132/77
== END 2023-06-11 18:22 | disposition short-term general hospital (02) ==
LOC: ED 13:21
DX: S06.5X0A Traumatic subdural hemorrhage without loss of consciousness, initial encounter (principal); S00.01XA Abrasion of scalp, initial encounter; W01.0XXA Fall on same level from slipping, tripping and stumbling without subsequent striking against object, initial encounter; Y93.K1 Activity, walking an animal
CPT/HCPCS: 36415; 80053; 83690; 85025; 85610; 87635; 99284; 99285

== ENCOUNTER 2023-07-02 08:56 | Outpatient (CLI) | payer MEDICARE, OTHER ==
[2023-07-02] MEDS ORDERED: iohexoL-300 100 ML VIAL ONE (09:42)
[2023-07-02] MEDS: iohexoL-300 100 ML VIAL IVP ONE (11:04)
--- NOTE | 2023-07-02 16:09 | CT Report ---
PROCEDURE: Chest W INDICATIONS: OTHER NONSPECIFIC ABNORMAL FINDING OF LUNG FIELD CONTRAST: iohex 300 100ml TECHNIQUE: After the administration of intravenous contrast, a CT scan of the chest was performed. Images were recorded and evaluated at appropriate window settings. Reformats: axial MIP of the chest, coronal and sagittal. For radiation dose reduction, the following was used: automated exposure control, adjustme nt of mA and/or kV according to patient size. COMPARISON: None. FINDINGS: Image quality: Diagnostic. Chest wall and lower neck: No thyroid nodule which requires sonographic follow up. Left lower lobe th yroid nodule measures 0.6 cm (2/18). No axillary or supraclavicular adenopathy by size. Lungs and pleura: Bilateral lower lobe patchy consolidation, right greater than left. A few scattered patchy consolidations in the bilateral upper lobes (for example, 4/29, 40, 54). A few scattered isai d pulmonary nodules. For example: -Right upper lobe, measures 6 mm (4/39). -Left upper lobe, measures 5 mm (4/48). Bilateral lower lobe bronchial wall thickening. No pleural effusion or pneumothorax. Mediastinum: Heart size is normal. No pericardial effusion. No thoracic aortic aneurysm. Descending t horacic aorta is borderline ectatic measuring 4 x 3.7 cm (2/58) with moderate to severe calcified and noncalcified atherosclerotic plaque measuring up to 1.1 cm. Main pulmonary artery is normal in calib er. No filling defects in the central pulmonary vasculature. No mediastinal adenopathy by size criter ia. Small hiatal hernia. Bones: No aggressive osseous abnormality. No acute fractures. Mild multilevel degenerative changes of the spine. Upper Abdomen: Diffuse hypoattenuation of the liver. Simple cyst in the left hepatic lobe. Cholecyste ctomy. Multiple hypodense lesions in the spleen, likely benign cysts or hemangiomas. Mild to moderate atherosclerosis of the abdominal aorta. Focal ectasia of the abdominal aorta just below the diaphrag matic hiatus (/77). IMPRESSION: 1.Bilateral scattered patchy consolidation, right greater than left, suggestive of multifocal infecti on. Recommend repeat CT chest in 3 months after treatment to document improvement and rule out malign caitlyn. 2.Bilateral lower lobe bronchial wall thickening with a small hiatal hernia may represent bronchiolit is/sequela of chronic aspiration. 3.A few scattered solid pulmonary nodules measuring up to 6 mm. Attention on follow-up CT. 4.Moderate to severe atherosclerotic plaque of the thoracic aorta, notably in the descending thoracic aorta which is borderline ectatic with moderate to severe calcified and noncalcified atherosclerotic plaque. 5.Diffuse hypoattenuation of the liver which is nonspecific and may be seen in the setting of steatos is. Reviewed by: Dorita Floyd MD on 07/02/2023 4:07 PM PDT Approved by: Dorita Floyd MD on 07/02/2023 4:07 PM PDT Station ID: [id number]
== END 2023-07-02 08:57 | disposition home or self-care (01) ==
LOC: DI 08:56
PROVIDERS: ATTEND Internal Medicine
DX: R91.8 Other nonspecific abnormal finding of lung field (principal); K44.9 Diaphragmatic hernia without obstruction or gangrene; I70.0 Atherosclerosis of aorta
CPT/HCPCS: 71260; Q9967